=== PATIENT | female | born 1965 | race Caucasian/White ===

== ENCOUNTER → 2018-06-22 | Outpatient (CLI) | payer BC ==
[2018-06-22 15:47] VITALS: BP 154/101; PULSE 86; RESP 16; TEMP 98.1; BMI 43.6
--- NOTE | 2018-06-22 16:41 | P.BASOAP ---
Subjective Progress Note Date: 06/22/18 Principal diagnosis: Morbid obesity Patient known to our service. Patient had a history of previous lap band. The surgery is performed in 2007. She was last seen in 2013. The patient had 1 mL added for a total of 8 mL at that time. Patient had a preoperative weight of 310. She lost down to as low as 180. Currently at 238. Patient describes frequent episodes of heartburn. Frequent vomiting as well. She states these symptoms going on for the last several years but increasing over the last 6-12 months. Objective - Vital Signs Vital signs: Vital Signs Temp 98.1 F 06/22/18 15:43 Pulse 86 06/22/18 15:43 Resp 16 06/22/18 15:43 BP 154/101 06/22/18 15:43 Pulse Ox Intake & Output 06/21/18 06/22/18 06/22/18 18:59 06:59 18:59 Weight 108.153 kg - Exam Abdomen: Soft, nontender, nondistended Assessment/Plan (1) Morbid obesity Narrative/Plan: Options reviewed with the patient. Patient is interested in sleeve gastrectomy. She has not been a recent seminar. This will be arranged. The patient is not interested in gastric bypass despite the probable increased excess weight loss associated with that surgery in her situation. She apparently has had multiple family members have bad experiences with gastric bypass. Will empty the patient's lap band at this time. We'll review insurance requirements to proceeding with sleeve conversion. LAP-BAND was sterilely accessed. The patient's band was emptied. A total of 6.5 mL was removed. The band is now empty. Plan: Date: 06/22/18 Initial Weight: 108.153 kg Initial BMI: 43.6 Current Weight: 108.153 kg Current BMI: 43.6 Type of Surgery: Total Volume in Band: 0 Previous Volume: 6.5 Volume Removed: 6.5 Volume Added: 0 Band Size:
== END | disposition home or self-care (01) ==
LOC: BARWHC3 14:42
PROVIDERS: ATTEND Surgery
DX: E66.01 Morbid (severe) obesity due to excess calories (principal); Z68.41 Body mass index [BMI] 40.0-44.9, adult; Z98.84 Bariatric surgery status
CPT/HCPCS: 99202

== ENCOUNTER 2018-07-21 11:24 | Day surgery (SDC) | payer BC ==
[2018-07-16 15:59] VITALS: BMI 43.9
[~2018-07-21 11:24] MED LIST: LACTATED RINGERS 1,000 ML IV SCH; LIDOCAINE 1% 20 ML VIAL (10MG/ML) FOR IV START INTRADERMA PRN
[2018-07-21 12:03] VITALS: RESP 16; TEMP 99
[2018-07-21] MEDS ORDERED: PROPOFOL 10 MG/ML 20 ML VIAL IV ONE (12:20)
[2018-07-21] MEDS ORDERED: LIDOCAINE 1% INJ 10MG/ML (20 ML MDV) ONE (12:20)
--- NOTE | 2018-07-21 12:25 | P.GSHP ---
History of Present Illness H&P Date: 07/21/18 Chief Complaint: GERD 53-year-old female known to our service. History of previous lap band. Patient essentially conversion to sleeve gastrectomy. Admits to mild reflux after her band was emptied. No further vomiting now. Past Medical History Past Medical History: GERD/Reflux, Osteoarthritis (OA), Thyroid Disorder Additional Past Medical History / Comment(s): Restless Leg Syndrome. History of Any Multi-Drug Resistant Organisms: None Reported Past Surgical History: Bariatric Surgery, Cholecystectomy, Tubal Ligation Additional Past Surgical History / Comment(s): Lap band surgery, panniculectomy, sinus surgery. Past Anesthesia/Blood Transfusion Reactions: No Reported Reaction Past Psychological History: No Psychological Hx Reported Smoking Status: Former smoker Past Alcohol Use History: Occasional Additional Past Alcohol Use History / Comment(s): Quit smoking in 2003. Past Drug Use History: None Reported - Past Family History Mother Family Medical History: CVA/TIA Medications and Allergies Home Medications Medication Instructions Recorded Confirmed Type Ascorbic Acid [Vitamin C] 1,000 mg PO DAILY 06/22/18 07/21/18 History Cholecalciferol [Vitamin D3] 1,000 mg PO DAILY 06/22/18 07/21/18 History Ginkgo Biloba 500 mg PO DAILY 06/22/18 07/21/18 History Levothyroxine Sodium 200 mcg PO QAM 06/22/18 07/21/18 History Liothyronine Sodium 25 mcg PO QAM 06/22/18 07/21/18 History [place]-3 Fatty Acids/Fish Oil [Fish 1 tab PO DAILY 06/22/18 07/21/18 History Oil 1,000 mg Softgel] Pediatric Multivitamin No.30 1 tab PO DAILY 06/22/18 07/21/18 History [Multivitamin Children's Gummies] Progesterone, Micronized 400 mg PO HS 06/22/18 07/21/18 History [Progesterone] clonazePAM 1 mg PO HS 06/22/18 07/21/18 History Cetirizine HCl [Zyrtec] 10 mg PO QAM 07/16/18 07/21/18 History Allergies Allergy/AdvReac Type Severity Reaction Status Date / Time Penicillins Allergy Rash/Hives Verified 06/22/18 11:14 Surgical - Exam Vital Signs Temp Pulse Resp BP Pulse Ox 99.0 F 92 16 169/70 97 05/08/19 12:01 07/21/18 12:01 07/21/18 12:01 07/21/18 12:01 07/21/18 12:01 Physical exam: General: Well-developed, well-nourished HEENT: Normocephalic, sclerae nonicteric Abdomen: Nontender, nondistended Extremities: No edema Neuro: Alert and oriented Assessment and Plan (1) GERD (gastroesophageal reflux disease) Narrative/Plan: Will proceed with upper endoscopy at this time Current Visit: Yes Status: Acute Code(s): K21.9 - GASTRO-ESOPHAGEAL REFLUX DISEASE WITHOUT ESOPHAGITIS SNOMED Code(s): 450799893
--- NOTE | 2018-07-21 12:30 | P.PCN ---
Date of Procedure: 07/21/18 Procedure(s) Performed: Preoperative Dx: GERD, presurgical Postoperative Dx: Mild gastritis Procedure: EGD with Bx Anesthesia: Sedation Endoscopist: Dr. Barrett Specimens: Antrum Endoscopic Procedure: The patient was on the endoscopy table in the left decubitus position. The Olympus gastroscope was inserted into the oropharynx and passed under direct visualization to the region of the third portion of the duodenum. From that point the scope was slowly withdrawn inspecting all surfaces carefully. There were no neoplastic inflammatory or polypoid lesions throughout the duodenum. The pylorus was widely patent. The stomach was carefully inspected. There was gastritis present. A biopsy of the antrum took place to rule out H. pylori. Retroflexion revealed a normal band plication and hiatus. The esophagus was then carefully examined. There were no neoplastic inflammatory or polypoid lesions throughout the visualized esophagus. The patient was then taken to the recovery room in stable condition per anesthesia guidelines. Recommendations: Await biopsy results. Proceed with upcoming sleep gastrectomy conversion.
[2018-07-21 12:54] VITALS: BP 134/80; PULSE 88
== END 2018-07-21 13:05 | disposition home or self-care (01) ==
LOC: ORWHC2ENDO 11:24
PROVIDERS: ATTEND Surgery
DX: K29.50 Unspecified chronic gastritis without bleeding (principal); K21.9 Gastro-esophageal reflux disease without esophagitis; G25.81 Restless legs syndrome; E07.9 Disorder of thyroid, unspecified; M19.90 Unspecified osteoarthritis, unspecified site; Z87.891 Personal history of nicotine dependence; Z88.0 Allergy status to penicillin; Z98.84 Bariatric surgery status; Z79.899 Other long term (current) drug therapy; Z79.890 Hormone replacement therapy; Z90.49 Acquired absence of other specified parts of digestive tract
CPT/HCPCS: 43239; 81025; 88305

== ENCOUNTER → 2018-07-26 | Outpatient (CLI) | payer BC ==
[2018-07-26 12:43] LABS: Basophils % (A) 1 %; Eosinophils # (A) 0.1 k/uL (0-0.7); Eosinophils % (A) 3 %; HCT 40.1 % (34.0-46.0); HGB 12.5 gm/dL (11.4-16.0); Lymphocytes # (A) 1.6 k/uL (1.0-4.8); Lymphocytes % (A) 33 %; MCH 30.5 pg (25.0-35.0); MCHC 31.2 g/dL (31.0-37.0); MCV 97.8 fL (80.0-100.0); Mean Platelet Volume 7.1; Monocytes # (A) 0.3 k/uL (0-1.0); Monocytes % (A) 5 %; Neutrophils # (A) 2.8 k/uL (1.3-7.7); Neutrophils % (A) 55 %; Platelet Count 251 k/uL (150-450); RBC 4.09 m/uL (3.80-5.40)
[2018-07-26 12:57] LABS: ALT 34 U/L (9-52); AST 25 U/L (14-36); Alkaline Phosphatase 70 U/L (38-126); Anion Gap 7 mmol/L; Blood Urea Nitrogen 10 mg/dL (7-17); Calcium 9.2 mg/dL (8.4-10.2); Carbon Dioxide 24 mmol/L (22-30); Chloride 108 mmol/L (98-107); Glucose 80 mg/dL (74-99); Potassium 4.3 mmol/L (3.5-5.1); Sodium 139 mmol/L (137-145); Total Bilirubin 0.4 mg/dL (0.2-1.3); Total Protein 7.1 g/dL (6.3-8.2)
== END ==
LOC: LABWHC1 11:46
PROVIDERS: ATTEND Surgery
DX: Z01.812 Encounter for preprocedural laboratory examination (principal)
CPT/HCPCS: 36415; 80053; 85025

== ENCOUNTER → 2018-07-26 | Outpatient (CLI) | payer BC ==
[2018-07-26 13:27] VITALS: BMI 44.4
== END | disposition home or self-care (01) ==
LOC: BARWHC3 08:52
PROVIDERS: ATTEND Surgery
DX: E66.01 Morbid (severe) obesity due to excess calories (principal); Z68.41 Body mass index [BMI] 40.0-44.9, adult
CPT/HCPCS: 97804

== ENCOUNTER 2018-08-05 12:23 | Inpatient (IN) | payer BC ==
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
[~2018-08-05 12:23] MED LIST changes: +DEXAMETHASONE SOD PHOSPHATE 10 MG/ML 1 ML VIAL IV ONE; +ENOXAPARIN 40 MG/0.4 ML SYRINGE SQ ONE; +HYDROmorphone 0.5 MG/0.5 ML SYRINGE IVP PRN; +MIDAZOLAM 2 MG/2 ML VIAL IV PRN; +ONDANSETRON 4 MG/2 ML VIAL IVP ONE; +SCOPOLAMINE 1.5MG/72HR PATCH TRANSDERM ONE; +ceFAZolin IN SWFI 2 GM/20 ML SYRINGE IVP ONE
[2018-08-05] MEDS ORDERED: METHYLENE BLUE 30 MG in DEXTROSE 5% IN WATER 500 ML IRRIGATION ONE ×2 (13:00)
[2018-08-05] MEDS ORDERED: PROPOFOL 10 MG/ML 20 ML VIAL IV ONE (13:20)
[2018-08-05] MEDS ORDERED: LIDOCAINE 1% INJ 10MG/ML (20 ML MDV) ONE (13:20)
[2018-08-05] MEDS ORDERED: SUCCINYLCHOLINE CHLORIDE 100 MG/5 ML SYR IV ONE (13:20)
[2018-08-05] MEDS ORDERED: GLYCOPYRROLATE 0.2 MG/ML 2 ML VIAL ONE (13:20)
[2018-08-05] MEDS ORDERED: MIDAZOLAM 2 MG/2 ML VIAL ONE (13:20)
[2018-08-05] MEDS ORDERED: ROCURONIUM BROMIDE 10 MG/ML 10 ML VIAL IV ONE (13:20)
[2018-08-05] MEDS ORDERED: HYDROmorphone (PF) 1 MG/ML ONE (13:20)
[2018-08-05] MEDS ORDERED: fentaNYL (PF) 50 MCG/ML 2 ML AMP ONE (13:20)
[2018-08-05] MEDS ORDERED: KETOROLAC 30 MG/ML 1 ML VIAL ONE (13:20)
[2018-08-05] MEDS ORDERED: NEOSTIGMINE 1 MG/ML 10 ML VIAL ONE (13:20)
[2018-08-05] MEDS ORDERED: BUPIVACAIN-EPI 0.5%-1:200,000 30 ML VIAL SQ ONE ×2 (13:21→16:02)
[2018-08-05] MEDS ORDERED: LACTATED RINGERS 1,000 ML IV ONE (15:44)
[2018-08-05] MEDS ORDERED: diphenhydrAMINE 50 MG/ML 1 ML VIAL IVP PRN (16:16)
[2018-08-05] MEDS ORDERED: NALOXONE 0.4 MG/ML 1 ML VIAL IV PRN (16:16)
[2018-08-05] MEDS ORDERED: HYOSCYAMINE ORAL DROPS 1.875 MG/15 ML BOTTLE PO PRN (16:16)
[2018-08-05] MEDS ORDERED: SIMETHICONE 40 MG/0.6 ML DROPS 2,000 MG/30 ML BOTTLE PO PRN (16:16)
--- NOTE | 2018-08-05 16:28 | P.OP ---
Date of Procedure: 08/05/18 Procedure(s) Performed: PREOPERATIVE DIAGNOSIS: Morbid obesity, GERD, band intolerance POSTOPERATIVE DIAGNOSIS: Same PROCEDURE: Laparoscopic lap band removal with sleeve gastrectomy SURGEON: Nena EBL: 15 mL ANESTHESIA: General COMPLICATIONS: None OPERATIVE PROCEDURE: Patient was placed in the operating table in the supine position. She was placed under general anesthesia at that time. The abdomen was prepped and draped in sterile fashion after the patient was placed in lithotomy. The previous port incision site was much lower because of the prior panniculectomy. A new incision was made overlying the palpable port. The port was excised using blunt dissection and electrocautery. Through that incision a 5 mm optical trocar was used to enter the abdominal cavity in the left upper quadrant. Insufflation took place to 15 millimeters mercury. An additional right subxiphoid 5 mm trocar was then placed under direct visualization and then removed. 2 additional 5 mm trochars were placed in the right upper quadrant and left upper quadrant under direct visualization and a 15 mm trocar in the i nfraumbilical location. The liver was retracted using a medium Dennis liver retractor through the right subxiphoid trocar site. The adhesions from the left lobe of the liver and the lap band site were lysed using sharp dissection and electrocautery. The degree of adhesions here was actually fairly low. The hiatus was inspected. The patient had no visible hiatal hernia the gastric plication was then taken down using a combination of blunt dissection, sharp dissection, and the LigaSure device. Once the plication was fully mobilized I moved to the mid aspect of the greater curvature the stomach. The short gastric vasculature was divided using a LigaSure device proximally. I then switched and divided the short gastrics distally to a 3-4 cm from the pylorus. The dissection took place up to the left diaphragmatic crura at that point. The posterior short gastrics were likewise divided using the LigaSure device. Once the stomach was fully mobilized the blunt tipped 40-[place]e bougie dilator was advanced into the stomach and advanced all the way to the prepyloric location. A black echelon 60 stapler was utilized and fired tangentially across the antrum taking care to avoid narrowing at the incisura angularis. Subsequent firings of the stapler took place. The second firing of the stapler was a 60 black load with seam guard. Following that a total of 4 green echelon 60 staplers with seam guard took place proximally staying on the outer edge of our dilator. The oral gastric tube was reinserted. The stomach was insufflated with approximately 100 mL of methylene blue. No evidence of leak or obstruction was seen. The distal aspect of the sleeve was then reapproximated to the gastrosplenic and gastrocolic ligament using a short running 2-0 strata fix suture. This was done to prevent kinking or twisting of the sleeve. Tisseel fibrin glue was used along the length of the staple line. No bleeding was seen. The stomach remnant was removed from the 15 mm trocar site without difficulty. The fascia at the 15 more site was closed using interrupted 0 Vicryl sutures with the laparoscopic suture passer and Mauricio Brody technique. The insufflation was evacuated. The skin at all 5 incisions were closed using 4-0 Monocryl sutures. Skin glue and sterile dressings were then applied. DISPOSITION: Stable to recovery room
[2018-08-05] MEDS: HYDROmorphone 1 MG/ML 1 ML SYRINGE IVP PRN ×2 (17:49→23:24)
[2018-08-05] MEDS: ONDANSETRON 4 MG/2 ML VIAL IVP PRN ×2 (17:49→23:03)
[2018-08-05] MEDS: 0.9% NACL WITH KCL 20 MEQ/L 1,000 ML IV SCH (19:08)
[2018-08-05] MEDS: ALBUTEROL NEBULIZED 2.5 MG/3 ML INHALATION SCH (21:31)
[2018-08-06] MEDS: 0.9% NACL WITH KCL 20 MEQ/L 1,000 ML IV SCH ×2 (02:07→14:54)
[2018-08-06] MEDS: HYDROmorphone 1 MG/ML 1 ML SYRINGE IVP PRN (03:50)
[2018-08-06] MEDS: ENOXAPARIN 40 MG/0.4 ML SYRINGE SQ SCH ×2 (06:19→17:25)
[2018-08-06 07:43] LABS: Basophils % (A) 0 %; Eosinophils # (A) 0.1 k/uL (0-0.7); Eosinophils % (A) 1 %; HCT 37.3 % (34.0-46.0); Lymphocytes # (A) 1.4 k/uL (1.0-4.8); Lymphocytes % (A) 14 %; MCV 96.7 fL (80.0-100.0); Mean Platelet Volume 7.3; Monocytes # (A) 0.6 k/uL (0-1.0); Monocytes % (A) 6 %; Neutrophils # (A) 7.2 k/uL (1.3-7.7); Neutrophils % (A) 75 %; Platelet Count 246 k/uL (150-450); RBC 3.86 m/uL (3.80-5.40); RDW 12.7 % (11.5-15.5); WBC 9.5 k/uL (3.8-10.6)
[2018-08-06] MEDS: ALBUTEROL NEBULIZED 2.5 MG/3 ML INHALATION SCH ×4 (07:53→19:24)
[2018-08-06] MEDS ORDERED: 1: MVI, ADULT NO.4 WITH VIT K 10 ML, THIAMINE 100 MG, FOLIC ACID 1 MG, POTASSIUM CHLORID IV SCH ×6 (08:00)
[2018-08-06 08:09] LABS: Anion Gap 6 mmol/L; Blood Urea Nitrogen 10 mg/dL (7-17); Calcium 8.5 mg/dL (8.4-10.2); Carbon Dioxide 22 mmol/L (22-30); Chloride 113 mmol/L (98-107); Sodium 141 mmol/L (137-145)
[2018-08-06 08:10] LABS: Potassium 5.4 mmol/L (3.5-5.1)
[2018-08-06] MEDS: ONDANSETRON 4 MG/2 ML VIAL IVP PRN ×2 (08:22→17:15)
[2018-08-06] MEDS: ACETAMINOPHEN IV (For NPO) 1,000 MG in EMPTY BAG 1 BAG IVPB SCH (10:46)
[2018-08-06] MEDS: PANTOPRAZOLE 40 MG/10 ML VIAL IV SCH (11:43)
--- NOTE | 2018-08-06 13:02 | FL ---
EXAMINATION TYPE: FL UGI DATE OF EXAM: 08/06/2018 COMPARISON: None HISTORY: Post lap band removal, gastric sleeve TECHNIQUE: A single contrast UGI study is performed. Isovue was utilized. FINDINGS: Contrast passes from the distal esophagus through the gastric sleeve with mild hesitancy. N o extravasation of contrast is evident. Lap band is not evident on this exam. Contrast passes through the gastric sleeve with out significant hesitancy. No free air is noted during this examination. Overhead radiographs were obtained which are unremarkable. IMPRESSIONS: 1. Normal post gastric sleeve without obstruction or hesitancy. No extravasation.
[2018-08-06] MEDS: SODIUM CHLORIDE 0.9% 1,000 ML IV SCH (14:52)
[2018-08-06] MEDS ORDERED: HYDROcodone/APAP 5-325MG 1 EACH TAB PO PRN (14:55)
--- NOTE | 2018-08-06 14:59 | P.PN ---
Subjective Progress Note Date: 08/06/18 Principal diagnosis: Morbid obesity Patient doing well today. She was nauseated but that has improved. Pain is likewise improved. White blood cell count was normal. Potassium is elevated. Upper GI shows no leak or obstruction. Objective - Vital Signs Vital signs: Vital Signs Temp 97.6 F 08/06/18 07:00 Pulse 92 08/06/18 13:35 Resp 14 08/06/18 07:00 BP 134/81 08/06/18 07:00 Pulse Ox 97 08/06/18 13:35 Intake & Output 08/05/18 08/06/18 08/06/18 18:59 06:59 18:59 Intake Total 1200 1800 Output Total 15 200 Balance 1185 1600 Intake: IV 1200 Intake, IV Titration 1800 Amount 0.9% NaCl with KCl 20 Meq 1800 /l 1,000 ml @ 150 mls/hr IV .[id number] STEVEN Rx#: [id number] Output: Urine 200 Estimated Blood Loss 15 Other: Voiding Method Toilet # Voids 1 - Exam Abdomen: Soft, nondistended, incision clean and dry - Labs CBC & Chem 7: 08/06/18 07:14 08/06/18 07:14 Labs: Abnormal Lab Results - Last 24 Hours (Table) 08/06/18 Range/Units 07:14 Potassium 5.4 H (3.5-5.1) mmol/L Chloride 113 H (98-107) mmol/L Creatinine 0.45 L (0.52-1.04) mg/dL Assessment and Plan (1) Morbid obesity Narrative/Plan: Ambulate. Continue clear liquids. Recheck labs tomorrow. Current Visit: Yes Status: Acute Code(s): E66.01 - MORBID (SEVERE) OBESITY DUE TO EXCESS CALORIES SNOMED Code(s): 464747270
[2018-08-06] MEDS: KETOROLAC 30 MG/ML 1 ML VIAL IVP SCH (17:24)
[2018-08-07] MEDS: KETOROLAC 30 MG/ML 1 ML VIAL IVP SCH ×4 (00:16→17:08)
[2018-08-07] MEDS: SODIUM CHLORIDE 0.9% 1,000 ML IV SCH ×3 (00:20→15:13)
[2018-08-07] MEDS: ALBUTEROL NEBULIZED 2.5 MG/3 ML INHALATION SCH ×4 (05:31→19:18)
[2018-08-07] MEDS: ENOXAPARIN 40 MG/0.4 ML SYRINGE SQ SCH ×2 (05:39→17:09)
[2018-08-07 06:58] LABS: Basophils % (A) 0 %; Eosinophils # (A) 0.1 k/uL (0-0.7); Eosinophils % (A) 1 %; HCT 31.8 % (34.0-46.0); HGB 10.4 gm/dL (11.4-16.0); Lymphocytes # (A) 1.4 k/uL (1.0-4.8); Lymphocytes % (A) 22 %; MCH 31.3 pg (25.0-35.0); MCHC 32.6 g/dL (31.0-37.0); Mean Platelet Volume 7.6; Monocytes # (A) 0.3 k/uL (0-1.0); Monocytes % (A) 5 %; Neutrophils # (A) 4.2 k/uL (1.3-7.7); Neutrophils % (A) 69 %; Platelet Count 220 k/uL (150-450); RBC 3.31 m/uL (3.80-5.40); WBC 6.1 k/uL (3.8-10.6)
[2018-08-07 07:10] LABS: Anion Gap 2 mmol/L; Blood Urea Nitrogen 8 mg/dL (7-17); Calcium 8.1 mg/dL (8.4-10.2); Carbon Dioxide 24 mmol/L (22-30); Chloride 114 mmol/L (98-107); Glucose 89 mg/dL (74-99); Potassium 4.3 mmol/L (3.5-5.1); Sodium 140 mmol/L (137-145)
[2018-08-07] MEDS: PANTOPRAZOLE 40 MG/10 ML VIAL IV SCH (08:00)
[2018-08-07 11:17] VITALS: BMI 44.2
--- NOTE | 2018-08-07 11:31 | P.PN ---
Progress Note - Text Progress Note Date: 08/07/18 Patient's resting comfortably in her bed. She has some complaints of nausea. She still feels weak. On exam her vital signs are stable. Her abdomen soft. Status post sleeve gastrectomy. Patient will continue her clear liquid diet. Wound is be discharged home tomorrow.
[2018-08-07] MEDS ORDERED: ACETAMINOPHEN IV (For NPO) 1,000 MG in EMPTY BAG 1 BAG IVPB ONE (19:36)
[2018-08-07] MEDS: ACETAMINOPHEN IV (For NPO) 1,000 MG in EMPTY BAG 1 BAG IVPB SCH (19:37)
[2018-08-08] MEDS: KETOROLAC 30 MG/ML 1 ML VIAL IVP SCH ×2 (00:57→05:43)
[2018-08-08 01:30] VITALS: PULSE 72
[2018-08-08] MEDS: SODIUM CHLORIDE 0.9% 1,000 ML IV SCH (03:37)
[2018-08-08] MEDS: ENOXAPARIN 40 MG/0.4 ML SYRINGE SQ SCH (05:44)
[2018-08-08] MEDS: ALBUTEROL NEBULIZED 2.5 MG/3 ML INHALATION SCH (07:50)
[2018-08-08] MEDS: PANTOPRAZOLE 40 MG/10 ML VIAL IV SCH (08:18)
[2018-08-08 08:31] VITALS: BP 134/82; RESP 12; TEMP 98
--- NOTE | 2018-08-08 10:15 | P.PN ---
Progress Note - Text Progress Note Date: 08/08/18 Patient is a well. She has no significant nausea. On exam her vital signs are stable. Her abdomen soft. Her patient was discharged home today. She'll follow-up next week in the bariatric clinic.
== END 2018-08-08 10:42 | disposition home or self-care (01) | DRG 327 ==
LOC: 2ORMAIN 12:23 → 4SSUR 16:21
PROVIDERS: ADMIT Surgery; ATTEND Surgery
PROC: 0DP64CZ Removal of Extraluminal Device from Stomach, Percutaneous Endoscopic Approach (ICD-10-PCS; 2018-08-05)
PROC: 0DB64Z3 Excision of Stomach, Percutaneous Endoscopic Approach, Vertical (ICD-10-PCS; principal; 2018-08-05 13:15)
DX: K95.09 Other complications of gastric band procedure (principal); Z68.41 Body mass index [BMI] 40.0-44.9, adult; E66.01 Morbid (severe) obesity due to excess calories; R13.10 Dysphagia, unspecified; K29.70 Gastritis, unspecified, without bleeding; K21.9 Gastro-esophageal reflux disease without esophagitis; E07.9 Disorder of thyroid, unspecified; M79.7 Fibromyalgia; M19.90 Unspecified osteoarthritis, unspecified site; Z71.3 Dietary counseling and surveillance; H91.93 Unspecified hearing loss, bilateral; Z79.890 Hormone replacement therapy; Z79.899 Other long term (current) drug therapy; Z87.442 Personal history of urinary calculi; Z90.49 Acquired absence of other specified parts of digestive tract; Z86.59 Personal history of other mental and behavioral disorders; Z87.891 Personal history of nicotine dependence; Z98.51 Tubal ligation status; Z88.0 Allergy status to penicillin; Z80.1 Family history of malignant neoplasm of trachea, bronchus and lung; Z83.49 Family history of other endocrine, nutritional and metabolic diseases; Z82.3 Family history of stroke
CPT/HCPCS: 74240; 80048; 80051; 82310; 82565; 83735; 84100; 84520; 85025; 88307; 94640; 94760; 94762

== ENCOUNTER → 2018-08-24 | Outpatient (CLI) | payer BC ==
[2018-08-24 13:34] VITALS: BMI 39.3
--- NOTE | 2018-08-24 14:05 | P.BASOAP ---
Subjective Progress Note Date: 08/24/18 Principal diagnosis: Morbid obesity Patient returns today for recheck. Sleeve gastrectomy and band removal performed on 08/05. Doing well since that time. Tolerating diet. 60-80 ounces of liquids per day. 75 g of protein. She has lost 17 pounds since last visit. Minimal GERD symptoms. Feels full after 1/2 cup food. Would like to return to work. Objective - Vital Signs Vital signs: Intake & Output 08/23/18 08/24/18 08/24/18 18:59 06:59 18:59 Weight 97.568 kg - Exam Abdomen: Soft, nondistended, incision clean and dry Assessment/Plan (1) Morbid obesity Narrative/Plan: Patient doing well at this time. Continue antiacids. Begin daily vitamins. Monitor fluid and protein intake. We'll check one month labs. Follow up one month. Plan: Date: Initial Weight: 108.153 kg Initial BMI: Current Weight: 97.568 kg Current BMI: 39.3 Type of Surgery: Total Volume in Band: 0 Previous Volume: Volume Removed: Volume Added: Band Size:
[2018-08-24 15:20] LABS: HCT 40.2 % (34.0-46.0); Hypochromasia Slight; MCH 31.1 pg (25.0-35.0); MCHC 33.3 g/dL (31.0-37.0); MCV 93.2 fL (80.0-100.0); Mean Platelet Volume 7.9; Platelet Count 298 k/uL (150-450); RBC 4.31 m/uL (3.80-5.40); RDW 13.4 % (11.5-15.5); WBC 6.9 k/uL (3.8-10.6)
[2018-08-24 15:32] LABS: HGB 13.4 gm/dL (11.4-16.0)
[2018-08-24 19:21] LABS: African American GFR (CKD) 122.3 (60.0-200.0); Albumin 4.2 g/dL (3.80-4.90); Albumin/Globulin Ratio 1.62 (1.60-3.17); Anion Gap 17.2 mmol/L (4.00-12.00); BUN/Creat Ratio 11.67 Ratio (12.00-20.00); Calcium 9.1 mg/dL (8.7-10.3); Carbon Dioxide 16.8 mmol/L (21.6-31.8); Globulin 2.6 g/dL (1.6-3.3); Potassium 4.2 mmol/L (3.5-5.5); Total Bilirubin 0.3 mg/dL (0.2-1.2); Total Protein 6.8 g/dL (6.2-8.2)
[2018-08-24 19:27] LABS: Vitamin D 25 Hydroxy 61.9 ng/mL (30.0-100.0)
[2018-08-24 19:43] LABS: Folate, Serum 18.6 ng/mL
[2018-08-25 09:42] VITALS: BP 134/92; PULSE 91; TEMP 98.4
== END ==
LOC: BARWHC3 12:44
PROVIDERS: ATTEND Surgery
DX: Z48.815 Encounter for surgical aftercare following surgery on the digestive system (principal); E66.01 Morbid (severe) obesity due to excess calories; K90.89 Other intestinal malabsorption; E55.9 Vitamin D deficiency, unspecified; Z79.899 Other long term (current) drug therapy; Z68.39 Body mass index [BMI] 39.0-39.9, adult
CPT/HCPCS: 80053; 82306; 82607; 82746; 83540; 84425; 85027; 97803; 99211

== ENCOUNTER → 2018-10-05 | Outpatient (CLI) | payer BC ==
[2018-10-05 11:54] VITALS: BP 125/84; PULSE 83; RESP 16; TEMP 97.8; BMI 36.0
--- NOTE | 2018-10-05 12:31 | P.BASOAP ---
Subjective Progress Note Date: 10/05/18 Principal diagnosis: Morbid obesity Patient returns today for follow-up. Doing well since last visit. She has had excellent weight loss. No heartburn. Some constipation at times. Denies pain. Exercising more. Labs checked last month looked normal Objective - Vital Signs Vital signs: Vital Signs Temp 97.8 F 10/05/18 11:51 Pulse 83 10/05/18 11:51 Resp 16 10/05/18 11:51 BP 125/84 10/05/18 11:51 Pulse Ox Intake & Output 10/04/18 10/05/18 10/05/18 18:59 06:59 18:59 Weight 89.358 kg - Exam Abdomen: Soft, nontender, nondistended Assessment/Plan (1) Morbid obesity Narrative/Plan: Patient doing very well postoperatively. Continue when necessary stool softeners. Will wean off of antiacids at this point. Follow-up 4-6 weeks. We'll check three-month labs at that time. Plan: Date: 10/05/18 Initial Weight: 108.153 kg Initial BMI: 43.6 Current Weight: 89.358 kg Current BMI: 36.0 Type of Surgery: Total Volume in Band: 0 Previous Volume: Volume Removed: Volume Added: Band Size:
== END | disposition home or self-care (01) ==
LOC: BARWHC3 11:38
PROVIDERS: ATTEND Surgery
DX: E66.01 Morbid (severe) obesity due to excess calories (principal); Z68.36 Body mass index [BMI] 36.0-36.9, adult
CPT/HCPCS: 97803; 99211

== ENCOUNTER → 2018-12-02 | Outpatient (CLI) | payer BC ==
[2018-12-02 13:28] VITALS: BP 113/79; PULSE 76; RESP 16; TEMP 98.3; BMI 33.3
[2018-12-02 15:03] LABS: HCT 36.4 % (34.0-46.0); HGB 12.1 gm/dL (11.4-16.0); MCH 31.3 pg (25.0-35.0); MCHC 33.4 g/dL (31.0-37.0); MCV 93.9 fL (80.0-100.0); Mean Platelet Volume 7.5; Platelet Count 228 k/uL (150-450); RBC 3.88 m/uL (3.80-5.40); RDW 14.4 % (11.5-15.5); WBC 5.4 k/uL (3.8-10.6)
--- NOTE | 2018-12-02 15:44 | P.BASOAP ---
Subjective Progress Note Date: 12/02/18 Principal diagnosis: Morbid obesity Patient returns for follow-up visit. 3 months post band conversion. She has lost 15 pounds since last visit. Remains on antiacid therapy. No reflux symptoms. No nausea or vomiting. No pain. Last set of labs revealed an elevated B12 level. She will start every other week nasal B12. Objective - Vital Signs Vital signs: Vital Signs Temp 98.3 F 12/02/18 13:24 Pulse 76 12/02/18 13:24 Resp 16 12/02/18 13:24 BP 113/79 12/02/18 13:24 Pulse Ox Intake & Output 12/01/18 12/02/18 12/02/18 18:59 06:59 18:59 Weight 82.554 kg - Exam Abdomen: Soft, nontender, nondistended - Labs CBC & Chem 7: 12/02/18 14:18 Assessment/Plan (1) Morbid obesity Narrative/Plan: Patient doing well at this time. Continue antiacid therapy. Recheck three- month labs at this point. Follow-up 6-8 weeks. Plan: Date: 12/02/18 Initial Weight: 108.153 kg Initial BMI: 43.6 Current Weight: 82.554 kg Current BMI: 33.3 Type of Surgery: Vertical Sleeve Gastrectomy Total Volume in Band: 0 Previous Volume: Volume Removed: Volume Added: Band Size:
[2018-12-02 19:05] LABS: Iron Saturation 24.54 (12.00-45.00)
[2018-12-02 19:07] LABS: African American GFR (CKD) 122.3 (60.0-200.0); Albumin/Globulin Ratio 1.67 (1.60-3.17); Anion Gap 8.7 mmol/L (4.00-12.00); BUN/Creat Ratio 16.67 Ratio (12.00-20.00); Calcium 9.4 mg/dL (8.7-10.3); Carbon Dioxide 25.3 mmol/L (21.6-31.8); Globulin 2.4 g/dL (1.6-3.3); Potassium 4.2 mmol/L (3.5-5.5); Total Bilirubin 0.5 mg/dL (0.3-1.2); Total Protein 6.4 g/dL (6.2-8.2)
[2018-12-02 19:13] LABS: Vitamin D 25 Hydroxy 67.2 ng/mL (30.0-100.0)
[2018-12-02 19:20] LABS: Folate, Serum 21.2 ng/mL
== END | disposition home or self-care (01) ==
LOC: BARWHC3 13:03
PROVIDERS: ATTEND Surgery
DX: Z48.815 Encounter for surgical aftercare following surgery on the digestive system (principal); K90.89 Other intestinal malabsorption; E55.9 Vitamin D deficiency, unspecified; Z68.33 Body mass index [BMI] 33.0-33.9, adult; E66.01 Morbid (severe) obesity due to excess calories; Z98.84 Bariatric surgery status
CPT/HCPCS: 80053; 82306; 82607; 82746; 83540; 83550; 84425; 85027; 97803; 99211

== ENCOUNTER → 2019-01-25 | Outpatient (CLI) | payer BC | END | disposition home or self-care (01) | LOC: BARWHC3 13:04 | PROVIDERS: ATTEND Surgery | DX: Z53.9 Procedure and treatment not carried out, unspecified reason (principal) ==

== ENCOUNTER → 2019-04-26 | Outpatient (CLI) | payer BC ==
[2019-04-26 13:11] VITALS: BP 133/80; PULSE 86; RESP 16; TEMP 97.8; BMI 30.7
[2019-04-26 15:02] LABS: HCT 37.3 % (34.0-46.0); HGB 12.2 gm/dL (11.4-16.0); MCH 32.4 pg (25.0-35.0); MCHC 32.7 g/dL (31.0-37.0); MCV 99.1 fL (80.0-100.0); Platelet Count 217 k/uL (150-450); RBC 3.76 m/uL (3.80-5.40); RDW 12.3 % (11.5-15.5)
--- NOTE | 2019-04-26 16:05 | P.BASOAP ---
Subjective Progress Note Date: 04/26/19 Principal diagnosis: Morbid obesity Patient returns for reevaluation. Doing well since last visit. Surgery last July. She has lost about 5 pounds in the last 2 months. Denies nausea or vomiting. No reflux. Still takes antacids control her reflux however. Taking a multivitamin daily. Vitamin D once a week. Nasal B12 as well. Recent labs in November normal. Objective - Vital Signs Vital signs: Vital Signs Temp 97.8 F 04/26/19 13:08 Pulse 86 04/26/19 13:08 Resp 16 04/26/19 13:08 BP 133/80 04/26/19 13:08 Pulse Ox Intake & Output 04/25/19 04/26/19 04/26/19 18:59 06:59 18:59 Weight 76.204 kg - Exam Abdomen: Soft, nontender, nondistended - Labs CBC & Chem 7: 04/26/19 14:44 Labs: Abnormal Lab Results - Last 24 Hours (Table) 04/26/19 Range/Units 14:44 RBC 3.76 L (3.80-5.40) m/uL Assessment/Plan (1) Morbid obesity Narrative/Plan: Patient doing well at this time. Continue dietary and exercise regimen. Continue multivitamin and vitamin supplementations. Plan follow-up 2-3 months. Check annual labs in July. Plan: Date: 04/26/19 Initial Weight: 108.153 kg Initial BMI: 43.6 Current Weight: 76.204 kg Current BMI: 30.7 Type of Surgery: Total Volume in Band: 0 Previous Volume: Volume Removed: Volume Added: Band Size:
[2019-04-26 18:43] LABS: ALT 16 U/L (8-44); AST 21 U/L (13-35); African American GFR (CKD) 122.3 (60.0-200.0); Albumin/Globulin Ratio 1.62 (1.60-3.17); Alkaline Phosphatase 57 U/L (41-126); BUN/Creat Ratio 16.67 Ratio (12.00-20.00); Calcium 9.3 mg/dL (8.7-10.3); Chloride 106 mmol/L (96-109); Globulin 2.6 g/dL (1.6-3.3); Glucose 71 mg/dL (70-110); Iron 65 ug/dL (50-170); Non-African American GFR(CKD) 105.5 (60.0-200.0); Potassium 4.3 mmol/L (3.5-5.5); Sodium 139 mmol/L (135-145); Total Bilirubin 0.4 mg/dL (0.2-1.2); Total Protein 6.8 g/dL (6.2-8.2)
[2019-04-26 18:56] LABS: Folate, Serum >24.0 ng/mL
== END | disposition home or self-care (01) ==
LOC: BARWHC3 13:02
PROVIDERS: ATTEND Surgery
DX: E66.01 Morbid (severe) obesity due to excess calories (principal); K90.89 Other intestinal malabsorption; E55.9 Vitamin D deficiency, unspecified; Z68.30 Body mass index [BMI] 30.0-30.9, adult
CPT/HCPCS: 80053; 82306; 82607; 82746; 83540; 84425; 85027; 99211

== ENCOUNTER → 2019-08-23 | Outpatient (CLI) | payer BC ==
[2019-08-23 13:49] VITALS: BP 134/80; PULSE 87; RESP 20; TEMP 98.5; BMI 29.5
[2019-08-23 15:03] LABS: HCT 39.4 % (34.0-46.0); HGB 12.8 gm/dL (11.4-16.0); MCH 33.3 pg (25.0-35.0); MCHC 32.4 g/dL (31.0-37.0); MCV 102.5 fL (80.0-100.0); Macrocytosis Slight; Mean Platelet Volume 7.7; Platelet Count 249 k/uL (150-450); RBC 3.84 m/uL (3.80-5.40); RDW 12.5 % (11.5-15.5); WBC 5.9 k/uL (3.8-10.6)
--- NOTE | 2019-08-23 16:12 | P.BASOAP ---
Subjective Progress Note Date: 08/23/19 Principal diagnosis: Morbid obesity Patient here today for 1 year follow-up. Last seen in April. Weight loss has plateaued over the last 2 months. No nausea or vomiting, no GERD. Slight increased oral intake. No pain. Objective - Vital Signs Vital signs: Vital Signs Temp 98.5 F 08/23/19 13:47 Pulse 87 08/23/19 13:47 Resp 20 08/23/19 13:47 BP 134/80 08/23/19 13:47 Pulse Ox Intake & Output 08/22/19 08/23/19 08/23/19 18:59 06:59 18:59 Weight 73.346 kg - Exam Abdomen: Soft, nontender, nondistended - Labs CBC & Chem 7: 08/23/19 14:32 Labs: Abnormal Lab Results - Last 24 Hours (Table) 08/23/19 Range/Units 14:32 MCV 102.5 H (80.0-100.0) fL Assessment/Plan (1) Morbid obesity Narrative/Plan: Patient overall doing fairly well. Continue exercise and dietary regimen. Check one year labs at this time. Follow-up 6-12 months. Plan: Date: 08/23/19 Initial Weight: 108.153 kg Initial BMI: 43.6 Current Weight: 73.346 kg Current BMI: 29.5 Type of Surgery: Total Volume in Band: 0 Previous Volume: Volume Removed: Volume Added: Band Size:
[2019-08-24 00:04] LABS: African American GFR (CKD) 121.5 (60.0-200.0); Albumin 4.2 g/dL (3.80-4.90); Albumin/Globulin Ratio 1.5 (1.60-3.17); Anion Gap 6.8 mmol/L (4.00-12.00); Calcium 9.3 mg/dL (8.7-10.3); Carbon Dioxide 27.2 mmol/L (21.6-31.8); Globulin 2.8 g/dL (1.6-3.3); Non-African American GFR(CKD) 104.8 (60.0-200.0); Total Bilirubin 0.4 mg/dL (0.2-1.2)
== END | disposition home or self-care (01) ==
LOC: BARWHC3 13:31
PROVIDERS: ATTEND Surgery
DX: E66.01 Morbid (severe) obesity due to excess calories (principal); Z68.29 Body mass index [BMI] 29.0-29.9, adult; Z71.3 Dietary counseling and surveillance; K90.89 Other intestinal malabsorption; E55.9 Vitamin D deficiency, unspecified
CPT/HCPCS: 36415; 80053; 82306; 82607; 82746; 83540; 84425; 85027; 99211